=== PATIENT | male | born 1985 | race Caucasian/White ===

== ENCOUNTER 2016-06-22 23:08 | Emergency (ER) | payer SELFPAY ==
--- NOTE | 2016-06-23 00:35 | ED Physician Chart ---
Chief Complaint/HPI - Patient Information Date Seen:: 06/23/16 Time Seen:: 00:30 Chief Complaint:: back pain History of Present Illness:: pt says he is here because the back pain he has had since mid april is worse last few days. he has ultram at home but didnt take today bc felt it wasnt helping. no change in bm or urine. no fever. pt has a known inguinal hernia that needs repair...he is awaiting fu w pmd to get this scheduled. He thinks his back strain is because the hernia has caused him to have to walk w difficulty. the hernia is reducable and not worse tndr today. no n/v/d. 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 is alone. says he can call family to pick him up. pain is sev ache in left low back w rad around to left hip ant. worse w mvt. relief when at rest. Allergies:: Allergies Allergy/AdvReac Type Severity Reaction Status Date / Time No Known Allergies Allergy Verified 06/23/16 00:18 Vitals:: Vital Signs - 8 hr 06/22/16 23:15 Temp 98.4 F HR 67 RR 18 BP 124/74 O2 Sat % 99 Historian:: Patient Review of Systems - Review of Systems General/Constitutional: No fever, No chills, No weight loss, No weakness, No diaphoresis, No edema, No loss of appetite Skin: No skin lesions, No rash, No bruising Head: No headache, No light-headedness Eyes: No loss of vision, No pain, No diplopia ENT: No earache, No nasal drainage, No sore throat, No tinnitus Neck: No neck pain, No swelling, No thyromegaly, No stiffness, No mass noted Cardio Vascular: No chest pain, No palpitations, No PND, No orthopnea, No edema Pulmonary: No SOB, No cough, No sputum, No wheezing GI: No nausea, No vomiting, No diarrhea, No pain, No melena, No hematochezia, No constipation, No hematemesis G/U: No dysuria, No frequency, No hematuria Musculoskeletal: No bone or joint pain, Back pain, No muscle pain Endocrine: No polyuria, No polydipsia Psychiatric: No prior psych history, No depression, No anxiety, No suicidal ideation Hematopoietic: No bruising, No lymphadenopathy Allergic/Immuno: No urticaria, No angioedema Neurological: No syncope, No focal symptoms, No weakness, No paresthesia, No headache, No seizure, No dizziness, No confusion, No vertigo Past Medical History - Past Medical History Past Medical History: Asthma/COPD, Other (back pain x months, inguinal hernia) Social History: Smoker Medication: Reviewed Family Medical History - Family Member Mother History Unknown: Yes Physical Exam - Physical Examination General/Constitutional: Awake, Well-developed, well-nourished, Alert, No distress, GCS 15, Non-toxic appearing, Ambulatory Head: Atraumatic Eyes: Lids, conjuctiva normal, PERRL, EOMI Skin: Nl inspection, No rash, No skin lesions, No ecchymosis, Well hydrated, No lymphadenopathy ENMT: External ears, nose nl, Nasal exam nl, Lips, teeth, gums nl Neck: Nontender, Full ROM w/o pain, No JVD, No nuchal rigidity, No bruit, No mass, No stridor Respiratory: Nl effort/Exclusion, Clear to Auscultation, No Wheeze/Rhonchi/Rales Cardio Vascular: RRR, No murmur, gallop, rubs, NL S1 S2 GI: No tenderness/rebounding/guarding, No organomegaly, No hernia, Normal BS's, Nondistended, No mass/bruits, No McBurney tenderness : No CVA tenderness Other comments:: lrg nonincarcerated hernia in scrotum. low back tnder at rt low lumbar spine. no cva tndrness. ok rom. no weak/numb in legs. no incontinence Extremities: No tenderness or effusion, Full ROM, normal strength in all extremities, No edema, Normal digits & nails Neuro/Psych: Alert/oriented, DTR's symmetric, Normal sensory exam, Normal motor strength, Judgement/insight normal, Mood normal, Normal gait, No focal deficits Misc: normal gait, Normal back, No paraspinal tenderness ED Septic Shock - . Is Septic Shock (SBP<90, OR Lactate>4 mmol\L) present?: No - <6hrs of presentation: Vital Signs: Vital Signs - 8 hr 06/22/16 23:15 Temp 98.4 F HR 67 RR 18 BP 124/74 O2 Sat % 99 Reassessment (Disposition) - Reassessment Reassessment:: explained to pt will give short pain rx but no work or operating machinery or drinking etoh while on this medication Reassessment Condition:: Improved - Diagnosis Diagnosis:: 1 back pain sciatica left low back\ 2 inguinal hernia - nonincarcerated. - Aftercare/Follow up Instructions Aftercare/Follow-Up Instructions:: Counseled pt regarding lab results/diagnosis & need follow up Medication Prescribed:: yaima 5s no 15 pt to see his pmd in next few days or return if worse. - Patient Disposition Discharge/Transfer:: Home Condition at Disposition:: Improved
== END 2016-06-23 01:25 | disposition home or self-care (01) ==
LOC: ER 23:08
DX: M54.42 Lumbago with sciatica, left side (principal); K40.90 Unilateral inguinal hernia, without obstruction or gangrene, not specified as recurrent; J44.9 Chronic obstructive pulmonary disease, unspecified; J45.909 Unspecified asthma, uncomplicated; F17.200 Nicotine dependence, unspecified, uncomplicated
CPT/HCPCS: Z7502